=== PATIENT | male | born 1985 | race Caucasian/White ===

== ENCOUNTER 2021-01-03 15:41 | Emergency (ER) | payer SELFPAY ==
[~2021-01-03] VITALS: Ht 167.6 cm; Wt 81.1 kg
[2021-01-03 15:53] VITALS: BP 141/76
[2021-01-03 16:34] LABS: BASOPHILS % (AUTO) 0 % (0-1); EOSINOPHILS % (AUTO) 1 % (1-7); LYMPHOCYTES % (AUTO) 20 % (22-44); MEAN CORPUSCULAR HEMOGLOBIN 30.4 pg (27.5-34.5); MEAN CORPUSCULAR HGB CONC 34.5 g/dL (33.2-36.2); MEAN PLATELET VOLUME 6.9 fL (7.4-10.4); MONOCYTES % (AUTO) 13 % (2-9); NEUTROPHILS % (AUTO) 66 % (42-75); PLATELET COUNT 273 x10^3/uL (130-400); RED BLOOD COUNT 4.33 x10^6/uL (4.38-5.82)
[2021-01-03 16:35] LABS: MD NO
[2021-01-03 16:44] LABS: ALBUMIN 3.5 g/dL (3.4-5.0); ANION GAP 5 mmol/L (5-15); CALCIUM 8.8 mg/dL (8.5-10.1); CHLORIDE 110 mmol/L (98-107); CREATININE 0.88 mg/dL (0.7-1.3)
== END 2021-01-03 17:19 | disposition home or self-care (01) ==
LOC: ED 17:00
DX: S50.01XA Contusion of right elbow, initial encounter (principal); L03.116 Cellulitis of left lower limb; F15.122 Other stimulant abuse with intoxication with perceptual disturbance; F17.210 Nicotine dependence, cigarettes, uncomplicated; X58.XXXA Exposure to other specified factors, initial encounter; Y93.89 Activity, other specified; Y92.89 Other specified places as the place of occurrence of the external cause; Y99.8 Other external cause status
CPT/HCPCS: 36415; 80048; 82040; 85025; 99284